=== PATIENT | female | born 1985 | race African-American/Black ===

== ENCOUNTER 2016-11-16 12:08 | Emergency (ER) | payer OTHER, SELFPAY ==
[2016-11-16 12:57] LABS: Hemoglobin 11.7 g/dL (12.0-16.0); Mean Corpuscular HGB CONC 33.1 g/dL (32.0-36.0); Mean Corpuscular Hemoglobin 30.7 pg (27.0-31.0); Mean Corpuscular Volume 92.7 fl (81.0-99.0); Mean Platelet Volume 5.8 fL (7.4-10.4); Platelet Count 358 thou/uL (130-400); RBC Distribution Width 12.1 % (11.5-14.5); Red Blood Cell (RBC) Count 3.82 mill/uL (4.20-5.40); White Blood Cell (WBC) Count 7.3 thou/uL (4.8-10.8)
[2016-11-16 13:01] LABS: Band 1 % (5-11); Eosinophils 3 % (0-10); Lymphocytes 38 % (21-51); MDiff Complete? YES; Manual Diff?? YES; Monocytes 8 % (0-10); Neutrophil 50 % (42-75)
[2016-11-16 13:02] LABS: Anisocytosis SLIGHT = 6-15 cells (100X) (0-5/hpf); PLT Morphology Comment Appears Adequate
[2016-11-16 13:07] LABS: Troponin I Less than 0.010 ng/mL (< 0.028)
--- NOTE | 2016-11-16 13:12 | RAD ---
PA AND LATERAL CHEST: HISTORY: Chest pain. FINDINGS: Heart size is upper limits of normal. Mediastinal structures were unremarkable. The lungs are devorah r of infiltrates. IMPRESSION: Borderline heart size. No acute process. POS: OFF
[2016-11-16 13:46] LABS: CKMB 1.4 ng/mL (0-6.6)
== END 2016-11-16 15:44 | disposition home or self-care (01) ==
LOC: MADERS 12:08
DX: R06.02 Shortness of breath (principal)
CPT/HCPCS: 71020; 82553; 83880; 84484; 85025; 85379; 93005

== ENCOUNTER 2017-03-23 18:53 | Emergency (ER) | payer SELFPAY ==
[2017-03-23 19:23] LABS: Bilirubin Negative (Negative); Blood, Urine Large (Negative); Clarity Hazy (Clear); Glucose, Urine (Dipstick) Negative (Negative); Leukocyte Negative (Negative); Nitrite Negative (Negative); Protein, Urine (Dipstick) Negative (Neg-Trace); Specific Gravity, Urine 1.025 (1.005-1.030)
[2017-03-23 19:29] LABS: Bacteria/HPF Rare-Few HPF (None Seen); RBC/HPF 21-50 HPF (0-3); Squamous Epithelial 0-3 HPF (0-3); WBC/HPF 0-3 HPF (0-3)
[2017-03-23 19:59] LABS: Pregnancy Test - Urine (BHCG) POSITIVE (Negative); Pregu Control Background? CLEAR/WHITE (CLR/WHITE); Pregu Control Bar Appear? YES (CONTROL BAR); Specific Gravity 1.025 (1.002-1.036)
== END 2017-03-23 20:35 | disposition home or self-care (01) ==
LOC: MADERS 18:53
DX: O99.89 Other specified diseases and conditions complicating pregnancy, childbirth and the puerperium (principal); R10.9 Unspecified abdominal pain
CPT/HCPCS: 81001; 81025; 87086; 99284

== ENCOUNTER 2017-10-27 22:36 | Emergency (ER) | payer MEDICAID, OTHER | END 2017-10-27 23:30 | disposition home or self-care (01) | LOC: MADERS 22:36 | DX: J06.9 Acute upper respiratory infection, unspecified (principal) | CPT/HCPCS: 99282 ==

== ENCOUNTER 2018-01-25 19:15 | Emergency (ER) | payer OTHER | END 2018-01-25 19:30 | disposition home or self-care (01) | LOC: MADERS 19:15 | DX: T78.40XA Allergy, unspecified, initial encounter (principal) | CPT/HCPCS: 99282 ==

== ENCOUNTER 2018-04-14 15:54 | Emergency (ER) | payer OTHER ==
[2018-04-14] MEDS ORDERED: Acetaminophen 325 MG TAB ONE (16:38)
== END 2018-04-14 17:25 | disposition home or self-care (01) ==
LOC: MADERS 15:54
DX: J11.1 Influenza due to unidentified influenza virus with other respiratory manifestations (principal)
CPT/HCPCS: 99283

== ENCOUNTER 2018-11-24 11:31 | Emergency (ER) | payer BC, OTHER ==
--- NOTE | 2018-11-24 12:14 | RAD ---
RADIOGRAPH RIGHT FOOT 3VIEWS: DATE: 11/24/2018 HISTORY: 33-year-old female with traumatic right foot pain, acute. FINDINGS: There is no dislocation. No fracture is identified. IMPRESSION: No fracture.
--- NOTE | 2018-11-24 12:16 | RAD ---
RADIOGRAPH RIGHT ANKLE 3 VIEWS: DATE: 11/24/2018 HISTORY: 33-year-old female with acute, traumatic right ankle pain. FINDINGS: Ankle mortise is congruent. There is no evidence of fracture. There is no subluxation or dislocation. IMPRESSION: No fracture.
== END 2018-11-24 12:42 | disposition home or self-care (01) ==
LOC: MADERS 11:31
DX: S93.401A Sprain of unspecified ligament of right ankle, initial encounter (principal); S93.601A Unspecified sprain of right foot, initial encounter; X50.1XXA Overexertion from prolonged static or awkward postures, initial encounter

== ENCOUNTER 2019-02-07 01:21 | Emergency (ER) | payer OTHER ==
--- NOTE | 2019-02-07 08:09 | RAD ---
XR Knee Rt 4 View STANDARD History: Injury Comparison: None. Findings: No acute fracture or malalignment. Small joint effusion. Impression: Small joint effusion without acute displaced fracture or malalignment.
== END 2019-02-07 02:21 | disposition home or self-care (01) ==
LOC: MADERS 01:21
DX: S83.91XA Sprain of unspecified site of right knee, initial encounter (principal); W50.0XXA Accidental hit or strike by another person, initial encounter

== ENCOUNTER 2019-07-02 20:24 | Emergency (ER) | payer OTHER ==
[2019-07-02 20:58] LABS: Bilirubin Negative (Negative); Blood, Urine Large (Negative); Clarity Clear (Clear); Glucose, Urine (Dipstick) Negative (Negative); Leukocyte Negative (Negative); Nitrite Negative (Negative); Protein, Urine (Dipstick) Negative (Neg-Trace)
[2019-07-02 21:00] LABS: Pregnancy Test - Urine (BHCG) Negative (Negative); Pregu Control Background? CLEAR/WHITE (CLR/WHITE); Pregu Control Bar Appear? YES (CONTROL BAR); Specific Gravity 1.028 (1.002-1.036)
[2019-07-02 21:11] LABS: Bacteria/HPF Rare-Few HPF (None Seen); Squamous Epithelial 0-3 HPF (0-3); WBC/HPF 0-3 HPF (0-3)
[2019-07-02] MEDS ORDERED: Ketorolac Tromethamine 30 MG/ML VIAL ONE (21:30)
--- NOTE | 2019-07-03 07:33 | CT ---
CT ABDOMEN AND PELVIS: DATE: 07/02/2019. COMPARISON: None. HISTORY: Bilateral flank pain. TECHNIQUE: Axial CT imaging at 5 mm intervals through abdomen and pelvis without contrast with coronal and sagit matty reformatted imaging. FINDINGS: The lack of contrast limits assessment of the viscera, bowel vascular structures, and for lymphadenop athy. Imaged lung bases are unremarkable. No free intraperitoneal air. Liver, spleen, gallbladder, pancreas, and adrenal glands are grossly unremarkable. No evidence for hydronephrosis or nephrolithiasis is noted on either side. No evidence for obstructi ve uropathy is appreciated on either side. Soft tissue density in the pelvic cul-de-sac suggests a retroverted uterus. Limited assessment of the bowel without contrast media demonstrates no evidence for obstruction or in flammatory change. The appendix is unremarkable. Review of the osseous structures demonstrates no worrisome lytic or blastic or bone lesion. IMPRESSION: No evidence for nephrolithiasis or obstructive uropathy. No free intraperitoneal air or evidence for bowel obstruction. There is soft tissue density in the pelvic cul-de-sac which likely represents a prominent retroverted uterus. POS: [facility]
== END 2019-07-02 22:01 | disposition home or self-care (01) ==
LOC: MADERS 20:24
DX: R30.0 Dysuria (principal); R10.9 Unspecified abdominal pain
CPT/HCPCS: 74176; 81003; 81015; 81025; 87077; 87086; 96372; J1885

== ENCOUNTER 2020-03-19 14:43 | Outpatient (CLI) | payer BC, OTHER ==
--- NOTE | 2020-03-19 15:22 | RAD ---
XR Shoulder Rt 3 View STANDARD HISTORY: Right shoulder pain FINDINGS: No fracture, dislocation or bony destruction is identified.
== END 2020-03-19 14:44 | disposition home or self-care (01) ==
LOC: MADRAD 14:43
PROVIDERS: ATTEND Family Medicine
DX: M25.511 Pain in right shoulder (principal)

== ENCOUNTER 2020-04-08 14:46 | Outpatient (CLI) | payer BC, OTHER ==
--- NOTE | 2020-04-08 15:30 | RAD ---
Exam: 4 views cervical spine HISTORY: No trauma. Chronic neck pain FINDINGS: AP, open-mouth, lateral swimmers view of the cervical spine are submitted for dictation The predental space is normal. No prevertebral soft tissue swelling. Straightening of cervical lordos is is presumed to be positional. Disc space heights are preserved. No fractures or malalignment. Cervicothoracic junction is unremarkable. Limited evaluation odontoid process and the lateral masses of C1 and C2 on the open-mouth projection On the AP projection, mild facet hypertrophy. IMPRESSION: No radiographic evidence of significant abnormality with regards the cervical spine. Kamran tional imaging as clinically warranted Transcribed Date/Time: 04/08/2020 3:37 PM
== END 2020-04-08 14:47 | disposition home or self-care (01) ==
LOC: MADRAD 14:46
PROVIDERS: ATTEND Orthopaedic Surgery
DX: M54.2 Cervicalgia (principal)
CPT/HCPCS: 72040

== ENCOUNTER 2020-05-21 22:48 | Emergency (ER) | payer BC, OTHER ==
[2020-05-21] MEDS ORDERED: Acetaminophen 500 MG TAB ONE (23:22)
== END 2020-05-21 23:43 | disposition home or self-care (01) ==
LOC: MADERS 22:48
DX: U07.1 COVID-19 (principal); D64.9 Anemia, unspecified
CPT/HCPCS: 99283

== ENCOUNTER 2020-06-10 15:14 | Outpatient (CLI) | payer BC, OTHER | END 2020-06-10 15:15 | disposition home or self-care (01) | LOC: MADRAD 15:14 | PROVIDERS: ATTEND Family Medicine | DX: R07.9 Chest pain, unspecified (principal); R00.2 Palpitations | CPT/HCPCS: 36415; 71046; 84484; 93005; 93010 ==

== ENCOUNTER 2021-02-07 12:19 | Emergency (ER) | payer BC, OTHER | END 2021-02-07 12:50 | disposition home or self-care (01) | LOC: MADERS 12:19 | DX: M54.12 Radiculopathy, cervical region (principal); D64.9 Anemia, unspecified | CPT/HCPCS: 99283 ==

== ENCOUNTER 2021-11-09 07:24 | Emergency (ER) | payer BC, OTHER | END 2021-11-09 08:00 | disposition home or self-care (01) | LOC: MADERS 07:24 | DX: J22 Unspecified acute lower respiratory infection (principal) | CPT/HCPCS: 99283 ==

== ENCOUNTER 2021-12-11 11:58 | Emergency (ER) | payer OTHER ==
[2021-12-11] MEDS ORDERED: Albuterol 200 PUFF (6.7GM INHALER) ONE (13:54)
== END 2021-12-11 14:25 | disposition home or self-care (01) ==
LOC: MADERS 11:58
DX: J06.9 Acute upper respiratory infection, unspecified (principal)

== ENCOUNTER 2022-07-20 10:05 | Emergency (ER) | payer OTHER ==
[2022-07-20] MEDS ORDERED: Ketorolac Tromethamine 30 MG/ML VIAL ONE (10:25)
[2022-07-20 10:51] LABS: Pregnancy Test - Urine (BHCG) Negative (Negative); Pregu Control Background? CLEAR/WHITE (CLR/WHITE); Pregu Control Bar Appear? YES (CONTROL BAR); Specific Gravity 1.024 (1.002-1.036)
== END 2022-07-20 11:47 | disposition home or self-care (01) ==
LOC: MADERS 10:05
DX: M25.561 Pain in right knee (principal)
CPT/HCPCS: 81025; 96372; J1885

== ENCOUNTER 2023-02-02 08:57 | Emergency (ER) | payer BC, SELFPAY | END 2023-02-02 10:12 | disposition home or self-care (01) | LOC: MADERS 08:57 | DX: J11.1 Influenza due to unidentified influenza virus with other respiratory manifestations (principal) | CPT/HCPCS: 87081; 87430; 87804; 99283 ==

== ENCOUNTER 2023-10-27 15:30 | Emergency (ER) | payer SELFPAY ==
[2023-10-27] MEDS ORDERED: Sulfameth/Trimethoprim DS 800-160mg TAB ONE (15:53)
== END 2023-10-27 16:01 | disposition home or self-care (01) ==
LOC: MADERS 15:30
DX: L60.0 Ingrowing nail (principal); I10 Essential (primary) hypertension
CPT/HCPCS: 99283

== ENCOUNTER 2024-12-07 01:00 | Emergency (ER) | payer OTHER ==
[2024-12-07] MEDS ORDERED: HYDROcodone/Acetaminophen 10/325 mg Tablet ONE (01:22)
[2024-12-07] MEDS ORDERED: Ibuprofen 800 MG TAB ONE (01:22)
[2024-12-07 02:05] LABS: Pregnancy Test - Urine (BHCG) Negative (Negative); Pregu Control Background? CLEAR/WHITE (CLR/WHITE); Pregu Control Bar Appear? YES (CONTROL BAR)
== END 2024-12-07 03:49 | disposition home or self-care (01) ==
LOC: MADERS 01:00 → EEVIPCON 01:00 → MADERS 03:49
DX: S00.83XA Contusion of other part of head, initial encounter (principal); I10 Essential (primary) hypertension; Y04.8XXA Assault by other bodily force, initial encounter; Z79.899 Other long term (current) drug therapy
CPT/HCPCS: 70450; 70486; 72125; 81025; Q0162